=== PATIENT | male | born 1990 | race Caucasian/White ===

== ENCOUNTER 2017-01-08 15:06 | Emergency (ER) | payer SELFPAY ==
[~2017-01-08] VITALS: Ht 175.3 cm; Wt 70.0 kg
[~2017-01-08 15:06] MED LIST: ACYCLOVIR200 MG PO; AUGMENTIN500TAB PO; FLEXERIL PO; MAALOX/BEN OR; NAPROSYN500 MG PO; NORCO1 TA1 PO
[2017-01-08 16:10] LABS: INFLUENZA A NONE DETECTED (NONE DETECT); INFLUENZA B NONE DETECTED (NONE DETECT)
[2017-01-08] MEDS ORDERED: AMOXICILLIN500 MG PO (16:24)
[2017-01-08] MEDS ORDERED: IBUPROFEN600 MG PO (16:24)
[2017-01-08 16:40] VITALS: BP 132/83
== END 2017-01-08 16:40 | disposition home or self-care (01) | DRG 153 ==
LOC: ED 15:06
PROVIDERS: Emergency Medicine
DX: J02.0 Streptococcal pharyngitis (principal); R51 Headache

== ENCOUNTER 2020-04-29 10:40 | Emergency (ER) | payer SELFPAY ==
[~2020-04-29] VITALS: Ht 175.3 cm; Wt 68.0 kg
[~2020-04-29 10:40] MED LIST changes: +AMOXICILLIN500 MG PO; +IBUPROFEN600 MG PO
[2020-04-29] MEDS ORDERED: FLEXERIL5 MG PO ×3 (12:04→12:07)
[2020-04-29] MEDS ORDERED: MEDDOSEPAK PO ×3 (12:04→12:07)
[2020-04-29] MEDS ORDERED: NAPROXEN375 MG PO ×3 (12:04→12:07)
[2020-04-29 12:18] VITALS: BP 115/65
== END 2020-04-29 12:15 | disposition home or self-care (01) | DRG 552 ==
LOC: ED 10:40
DX: M47.816 Spondylosis without myelopathy or radiculopathy, lumbar region (principal); S39.012A Strain of muscle, fascia and tendon of lower back, initial encounter; X58.XXXA Exposure to other specified factors, initial encounter

== ENCOUNTER 2020-06-14 18:44 | Emergency (ER) | payer SELFPAY ==
[~2020-06-14] VITALS: Ht 175.3 cm; Wt 65.0 kg
[~2020-06-14 18:44] MED LIST changes: +FLEXERIL5 MG PO; +MEDDOSEPAK PO; +NAPROXEN375 MG PO
[2020-06-14 19:11] VITALS: BP 142/92
== END 2020-06-14 19:25 | disposition left against medical advice (07) | DRG 951 ==
LOC: ED 18:44 → LWOBS 19:17
DX: Z53.21 Procedure and treatment not carried out due to patient leaving prior to being seen by health care provider (principal)